=== PATIENT | male | born 1935 | race Caucasian/White ===

== ENCOUNTER 2020-11-20 17:41 | Emergency (ER) | payer MEDICARE, BC, OTHER ==
[2020-11-20 19:24] LABS: Glucose, Urine (Dipstick) Normal (Negative); Urobilinogen Normal mg/dL (Less than 2)
[2020-11-20 19:27] LABS: Clarity Cloudy (Clear)
[2020-11-20 19:28] LABS: Ketone, Urine Unable to Interpret mg/dL (Negative); Leukocyte Unable to Interpret (Negative); Nitrite Unable to Interpret (Negative); Protein, Urine (Dipstick) Unable to Interpret mg/dl (Neg-Trace)
[2020-11-20 19:29] LABS: Bilirubin Unable to Interpret (Negative)
[2020-11-20 19:30] LABS: Blood, Urine Unable to Interpret (Negative)
[2020-11-20 19:42] LABS: #Eosinphils 0.2 10x3/uL (0.0-0.5); #Monocytes 0.6 10x3/uL (0.0-1.1); #Neutrophils 3.4 10x3/uL (1.5-8.4); %Basophils 0.6 % (0.0-2.0); %Eosinophils 3.7 % (0.0-6.0); %Lymphocytes 32.8 % (18.0-47.0); %Monocytes 9.4 % (0.0-10.0); %Neutrophils 53.3 % (40.0-75.0); Hemoglobin 14.9 g/dL (13.5-17.5); Mean Corpuscular HGB CONC 33.9 g/dL (32.0-36.0); Mean Corpuscular Hemoglobin 30.9 pg (27.0-33.0); Mean Corpuscular Volume 91.3 fl (81.2-95.1); Mean Platelet Volume 9.7 fl (7.4-10.4); Platelet Count 181 10x3/uL (150-450); RBC Distribution Width 13.4 % (11.5-14.5); Red Blood Cell (RBC) Count 4.82 10x6/uL (4.32-5.72); White Blood Cell (WBC) Count 6.4 10x3/uL (3.5-10.5)
[2020-11-20 19:52] LABS: PTT 27.6 sec (22.0-33.0); Prothrombin Time 10.9 sec (9.5-12.1)
[2020-11-20 19:54] LABS: ALT (SGPT) 20 U/L (8-55); AST (SGOT) 24 U/L (5-34); Albumin 3.6 g/dL (3.4-4.8); Alkaline Phosphatase 86 U/L (40-110); Anion Gap 13 mmol/L (10-20); BUN (Urea Nitrogen) 32 mg/dL (8.4-25.7); Bilirubin, Total 0.4 mg/dL (0.2-1.2); Calc. Creatinine Clearance 0 mL/min (70-130); Calcium 8.8 mg/dL (7.8-10.44); Carbon Dioxide 25 mmol/L (23-31); Chloride 102 mmol/L (98-107); Globulin 3.7 g/dL (2.4-3.5); Glucose 99 mg/dL (83-110); Potassium 4.6 mmol/L (3.5-5.1); Protein, Total 7.3 g/dL (5.8-8.1); Sodium 135 mmol/L (136-145)
[2020-11-20 19:58] LABS: RBC/HPF Greater than 50 HPF (0-3)
[2020-11-20 20:07] LABS: WBC/HPF 0-3 HPF (0-3)
[2020-11-20 20:10] LABS: Bacteria/HPF Rare-Few HPF (None Seen); Squamous Epithelial None Seen HPF (0-3)
== END 2020-11-20 20:45 | disposition home or self-care (01) ==
LOC: CSHERS 17:41
DX: R31.0 Gross hematuria (principal); I10 Essential (primary) hypertension; N40.0 Benign prostatic hyperplasia without lower urinary tract symptoms; Z79.899 Other long term (current) drug therapy
CPT/HCPCS: 80053; 81003; 81015; 85025; 85610; 85730; 86850; 86900; 86901; 99283